=== PATIENT | male | born 1955 | race Caucasian/White ===

== ENCOUNTER → 2017-05-03 | Outpatient (CLI) | payer OTHER | LOC: BHSO 15:58 | DX: F90.0 Attention-deficit hyperactivity disorder, predominantly inattentive type (principal) ==

== ENCOUNTER → 2017-10-28 | Outpatient (CLI) | payer OTHER | LOC: BHSO 16:17 | DX: F41.1 Generalized anxiety disorder (principal) | CPT/HCPCS: G0463 ==

== ENCOUNTER → 2018-04-26 | Outpatient (CLI) | payer OTHER | LOC: BHSO 15:55 | DX: F90.0 Attention-deficit hyperactivity disorder, predominantly inattentive type (principal) | CPT/HCPCS: G0463 ==

== ENCOUNTER → 2018-10-25 | Outpatient (CLI) | payer OTHER | LOC: BHSO 15:55 | DX: F90.0 Attention-deficit hyperactivity disorder, predominantly inattentive type (principal) | CPT/HCPCS: G0463 ==

== ENCOUNTER → 2019-04-18 | Outpatient (CLI) | payer MEDICARE, OTHER | LOC: BHSO 15:46 | DX: F90.0 Attention-deficit hyperactivity disorder, predominantly inattentive type (principal) | CPT/HCPCS: G0463 ==

== ENCOUNTER → 2019-10-17 | Outpatient (CLI) | payer MEDICARE, OTHER | LOC: BHSO 15:45 | DX: F90.0 Attention-deficit hyperactivity disorder, predominantly inattentive type (principal) | CPT/HCPCS: G0463 ==

== ENCOUNTER → 2020-04-19 | Outpatient (CLI) | payer MEDICARE, OTHER | LOC: BHSO 07:56 | DX: F90.0 Attention-deficit hyperactivity disorder, predominantly inattentive type (principal) | CPT/HCPCS: G0463 ==

== ENCOUNTER 2020-07-16 18:54 | Emergency (ER) | payer MEDICARE, OTHER ==
[~2020-07-16] VITALS: Ht 177.8 cm; Wt 113.6 kg
[2020-07-16 19:01] VITALS: BP 173/93; TEMP 96.8
[2020-07-16] MEDS ORDERED: ADDERALL20 MG (19:30)
[2020-07-16 19:40] VITALS: PULSE 92
== END 2020-07-16 19:39 | disposition home or self-care (01) ==
LOC: COL.ER 18:54
DX: L23.7 Allergic contact dermatitis due to plants, except food (principal)
CPT/HCPCS: J3301

== ENCOUNTER 2021-02-10 17:24 | Emergency (ER) | payer MEDICARE, OTHER ==
[~2021-02-10] VITALS: Ht 177.8 cm; Wt 102.7 kg
[~2021-02-10 17:24] MED LIST: ADDERALL20 MG
[2021-02-10 17:33] VITALS: TEMP 97.8
[2021-02-10] MEDS ORDERED: NORVASC 5MG5 MG/TAB PO (18:18)
[2021-02-10] MEDS ORDERED: FLEXERIL5 MG PO (18:18)
[2021-02-10 18:30] VITALS: BP 159/91; PULSE 63
== END 2021-02-10 18:32 | disposition home or self-care (01) ==
LOC: COL.ER 17:24
DX: S39.012A Strain of muscle, fascia and tendon of lower back, initial encounter (principal); X58.XXXA Exposure to other specified factors, initial encounter
CPT/HCPCS: J1885; J2360

== ENCOUNTER 2021-04-08 04:24 | Emergency (ER) | payer MEDICARE, OTHER ==
[~2021-04-08] VITALS: Ht 177.8 cm; Wt 102.3 kg
[~2021-04-08 04:24] MED LIST changes: +FLEXERIL5 MG PO; +NORVASC 5MG5 MG/TAB PO
[2021-04-08 04:45] LABS: BASO # 0.1 (0.0-0.2); BASO % 0.7 % (0.0-2.0); EOS # 0.2 (0.0-0.7); EOS % 2.6 % (0-4.0); GRAN # 5.1 (1.4-6.5); GRAN % 59.5 % (42.2-75.2); LYMPH # 2.2 (1.2-3.4); LYMPH % 25.8 % (20.0-51.0); MEAN CELL VOLUME 87 fl (80.0-100.0); MEAN CORPUSCULAR HEMOGLOBIN 31 pg (27.0-31.0); MEAN CORPUSCULAR HGB CONC 36 g/dl (33.0-37.0); MEAN PLATELET VOLUME 10.2 fl (7.4-10.4); MONO # 0.9 (0.1-0.6); MONO % 10.9 % (1.7-9.3); PLATELET COUNT 242 K/mm3 (130-400); REDCELL DISTRIBUTION WIDTH-CV 12.1 % (11.5-14.5)
[2021-04-08 04:56] LABS: ALANINE AMINOTRANSFERASE 23 U/L (4-49); ALBUMIN 4.1 gm/dL (3.5-5.0); ALKALINE PHOSPHATASE 71 U/L (50-136); ANION GAP 8 mmol/L (7-16); AST,SGOT 28 U/L (15-37); BILIRUBIN,TOTAL 0.5 mg/dL (0.0-1.0); BLOOD UREA NITROGEN 14 mg/dL (9-20); CALCIUM 9.2 mg/dL (8.4-10.2); CARBON DIOXIDE 25 mmol/L (22-30); CHLORIDE 102 mmol/L (98-107); CREATININE, serum 0.73 (0.66-1.25); GLUCOSE 181 mg/dL (74-106); POTASSIUM 3.7 mmol/L (3.4-5.0); SODIUM 135 mmol/L (137-145); TOTAL PROTEIN 7.5 gm/dL (6.4-8.2)
[2021-04-08 04:57] LABS: ACETAMINOPHEN < 10 ug/mL (10-30); ALCOHOL(ethanol),MEDICAL < 10 mg/dL; SALICYLATE < 1.0 mg/dL
[2021-04-08 05:17] LABS: TRICYCLIC ANTIDEPRESS URINE NEGATIVE
[2021-04-08 15:26] VITALS: BP 166/86; PULSE 60; TEMP 98.3
== END 2021-04-08 15:24 ==
LOC: COL.ER 04:24
PROVIDERS: Emergency Medicine
DX: R45.851 Suicidal ideations (principal); I10 Essential (primary) hypertension; E11.9 Type 2 diabetes mellitus without complications; Z79.899 Other long term (current) drug therapy

== ENCOUNTER 2021-10-04 09:54 | Emergency (ER) | payer MEDICARE, OTHER ==
[~2021-10-04] VITALS: Ht 177.8 cm; Wt 102.3 kg
[2021-10-04 10:52] VITALS: TEMP 97.9
[2021-10-04 11:37] LABS: BASO % 0.5 % (0.0-2.0); EOS # 0.1 K/mm3 (0.0-0.7); GRAN % 71.9 % (42.2-75.2); HEMATOCRIT 46.7 % (42.0-52.0); HEMOGLOBIN 16.7 g/dl (13.5-18.0); LYMPH # 1.5 K/mm3 (1.2-3.4); MEAN CELL VOLUME 85 fl (80.0-100.0); MEAN CORPUSCULAR HEMOGLOBIN 30 pg (27.0-31.0); MEAN CORPUSCULAR HGB CONC 36 g/dl (33.0-37.0); MEAN PLATELET VOLUME 10.1 fl (7.4-10.4); MONO # 0.7 K/mm3 (0.1-0.6); MONO % 8.4 % (1.7-9.3); PLATELET COUNT 265 K/mm3 (130-400); RED BLOOD COUNT 5.49 M/mm3 (4.20-5.60); REDCELL DISTRIBUTION WIDTH-CV 11.8 % (11.5-14.5)
[2021-10-04 12:23] LABS: ALBUMIN 3.8 gm/dL (3.4-4.8); BILIRUBIN,TOTAL 0.6 mg/dL (0.2-1.2); CALCIUM 9.1 mg/dL (8.4-10.2); CREATININE, serum 0.9 mg/dL (0.72-1.25); POTASSIUM 4.1 mmol/L (3.5-4.5); TOTAL PROTEIN 7.4 gm/dL (6.2-8.1)
[2021-10-04] MEDS ORDERED: ZOFRAN ODT4 MG PO (12:30)
[2021-10-04 12:50] VITALS: BP 145/88; PULSE 57
== END 2021-10-04 12:50 | disposition home or self-care (01) ==
LOC: COL.ER 09:54
PROVIDERS: Nurse Practitioner Primary Care
DX: K52.9 Noninfective gastroenteritis and colitis, unspecified (principal); I10 Essential (primary) hypertension; E11.9 Type 2 diabetes mellitus without complications; Z20.822 Contact with and (suspected) exposure to COVID-19; Z79.899 Other long term (current) drug therapy
CPT/HCPCS: J2405; J7030